=== PATIENT | male | born 1965 | race African-American/Black ===

== ENCOUNTER → 2016-06-26 | Outpatient (CLI) | payer OTHER ==
[~2016-06-26] MED LIST: ALEVE; BACTRIM DS TABL1 TA1 PO; COLACE PO; FLEXERIL PO; FLONASE 0.05% N16 G1; INDOMETHACIN50 MG PO; LORTAB 5/500 TA1 TA1 PO; MOTRIN50 MG PO; PROCTOFOAM-HC10 GM TOP; TESSALON200 MG PO; VICODIN 5/500 T1 TAB PO; ZITHROMAX1 G/PKT PO; ZYRTEC PO
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
== END | disposition home or self-care (01) ==
LOC: CRAD 12:10
DX: M54.5 Low back pain (principal); G89.29 Other chronic pain; M47.816 Spondylosis without myelopathy or radiculopathy, lumbar region
CPT/HCPCS: 72100

== ENCOUNTER 2016-08-09 13:06 | Emergency (ER) | payer OTHER ==
[2016-08-09 14:45] LABS: URINE SOURCE CLEAN CATCH
[2016-08-09 14:51] LABS: URINE APPEARANCE CLEAR; URINE BILIRUBIN NEG (NEG); URINE BLOOD NEG (NEG); URINE COLOR YELLOW; URINE GLUCOSE NEG (NEG); URINE KETONE NEG (NEG); URINE LEUKOCYTE ESTERASE NEG (NEG); URINE NITRATE NEG (NEG); URINE PROTEIN NEG (NEG); URINE SPECIFIC GRAVITY 1.003 (1.003-1.035); URINE UROBILINOGEN 0.2 MG/DL (NEG)
[2016-08-09 15:06] LABS: CULTURE INDICATED? NO
[2016-08-12 22:27] LABS: CHLAMYDIA TRACH Not Detected (Not Detected); N GONOR Not Detected (Not Detected)
== END 2016-08-09 15:48 | disposition home or self-care (01) ==
LOC: CFTX 13:06 → CED 13:06 → CFTX 15:15
PROVIDERS: Nurse Practitioner Family
DX: R30.0 Dysuria (principal); E11.9 Type 2 diabetes mellitus without complications; K21.9 Gastro-esophageal reflux disease without esophagitis
CPT/HCPCS: 81003; 82947; 87491; 87591; 99282

== ENCOUNTER 2016-09-26 12:25 | Emergency (ER) | payer OTHER ==
--- NOTE | ~2016-09-26 | CR195 ---
[facility] A Service of [facility] RADIOLOGY TEXT RESULTS PATIENT: KAILASH GRIMALDO LOCATION: [facility] : 61 UNIT #: [id number] AGE: [address]: Tori Anthony APRN SEX: M ORDER DR: [id number] [facility] [address] [place], [place] [address] [id number] E MR#: [id number] Acc #: [id number] NAME: KAILASH GRIMALDO : 1965 SEX: M STUDY DATE/TIME: 09/26/2016 13:05 UNIT: [facility] ROOM: STUDY DESCRIPTION: CR Neck Soft Tissue Attending Physician: Tori Anthony A.P.R.N. Ordering Physician: [facility] Primary Care Physician: Yannick Reyna M.D. MEDICAL IMAGING REPORT This report is preliminary unless electronic signature is present EXAM Soft tissue neck x-ray, 2 views INDICATIONS Foreign body sensation in throat for 10 days. COMPARISON STUDIES No comparisons. FINDINGS No prevertebral soft tissue swelling. No radiopaque foreign body. Widely patent airway IMPRESSION No radiopaque foreign body or prevertebral soft tissues swelling. Dictated by... Daniel Ennis M.D. THIS IS AN ELECTRONICALLY VERIFIED REPORT Daniel Ennis M.D. at 09/26/2016 5:05 PM Arsenio TD: 09/26/2016 15:22 JOB #: [id number] MEDICAL IMAGING REPORT Page 1 of 1 COPY
== END 2016-09-26 14:14 | disposition home or self-care (01) ==
LOC: CFTX 12:25 → CED 12:25 → CFTX 12:53
DX: J02.0 Streptococcal pharyngitis (principal); F32.9 Major depressive disorder, single episode, unspecified; F41.9 Anxiety disorder, unspecified; E78.5 Hyperlipidemia, unspecified; Z87.891 Personal history of nicotine dependence
CPT/HCPCS: 70360; 87880; 99283